=== PATIENT | male | born 1980 | race Caucasian/White ===

== ENCOUNTER 2016-12-20 08:44 | Emergency (ER) | payer OTHER ==
[2016-12-20] MEDS ORDERED: KETOROLAC TROMETHAMINE 60 MG/2 ML SDV IM ONE (09:14)
--- NOTE | 2016-12-20 09:25 | ER Document Report ---
ED Neck/Back Problem - General Chief Complaint: Back Pain Stated Complaint: BACK,NECK PAIN Mode of Arrival: Ambulatory Information source: Patient TRAVEL OUTSIDE OF THE [place] IN LAST 30 DAYS: No - HPI Patient complains to provider of: Pain, Neck, Upper back Onset: Other - 2 weeks Where: Home Onset: Gradual Timing: Constant Quality of pain: Dull Severity: Moderate Context: denies: Became dizzy, Fainted, Fall/near-fall, Lifting, Seizure Recent injury: No Associated symptoms: Like prior neck/back pain, Numbness/tingling - Chronic. denies: Chest pain, Abdominal pain, Chills, Constipation, Fever, Incontinence, Motor loss, Radiation to arm, Radiation to chest, Radiation to leg, Sensory loss , Sweaty, Unable to urinate, Lower back pain, Upper back pain Exacerbated by: Movement of neck Relieved by: Nothing Similar symptoms previously: Yes Recently seen / treated by doctor: Yes Notes: Patient arrives with complaints of left neck and upper back pain for the last 2 weeks. He states that he has had this in the past. 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 He thinks that this flared up his problem. Pain is in the left neck and upper back. It is worse with movement. He does complain of some tingling to the left hand, but states that that has been chronic for the last 10 years. He denies any fever, blood thinners, bowel or bladder dysfunction, weakness, chest pain, shortness of breath, or any further concerns at this time. - Related Data Allergies/Adverse Reactions: Penicillins Allergy (Verified 12/20/16 08:59) Home Medications: Current Home Medications Ibuprofen [Motrin 800 mg Tablet] 800 mg PO Q8H PRN 12/20/16 [History] Past Medical History - Social History Smoking Status: Current Every Day Smoker Chew tobacco use (# tins/day): No Frequency of alcohol use: None Drug Abuse: None Family History: Reviewed & Not Pertinent Renal/ Medical History: Denies: Hx Peritoneal Dialysis - Immunizations Hx Diphtheria, Pertussis, Tetanus Vaccination: Yes Review of Systems - Review of Systems -: Yes All other systems reviewed and negative Physical Exam - Vital signs Vitals: Temp Pulse Resp BP Pulse Ox 98.6 F 85 18 153/85 H 96 12/20/16 08:56 12/20/16 08:56 12/20/16 08:56 12/20/16 08:56 12/20/16 08:56 Interpretation: Normal - Notes Notes: GENERAL: alert, cooperative, nontoxic, no distress. HEAD: normocephalic, atraumatic EYES: conjunctiva pink without discharge, no external redness or swelling. EARS: no external swelling, no external redness NOSE: atraumatic, no external swelling MOUTH/THROAT: mucous membranes moist and pink, posterior pharynx without erythema, swelling, exudate. No trismus or drooling. NECK: soft, supple, full range of motion, no meningismus. CHEST: no distress, lungs clear and equal throughout. No wheezing, rales, rhonchi. CARDIAC: regular rate and rhythm, no murmur, normal capillary refill, normal pulses. No peripheral edema noted. ABDOMEN: soft, nontender, no pusatile mass. BACK: Patient is noted to have tenderness and spasm to the left upper back along the scapula. He has full range of motion of the back as well as the neck but states that the pain is much worse when he turns his head. There is no midline bone tenderness to exam. EXTREMITIES: full range of motion of all extremities. No redness, no swelling. NEURO: alert and oriented -3, no focal deficits, full range of motion of all extremities. 5 out of 5 flexion and extension of the UPPER extremities bilaterally. Bicep and tricep deep tendon reflexes are +2 bilaterally. Normal sensation with no saddle anesthesia. PYSCH: appropriate mood, affect. Patient is cooperative. SKIN: pink, warm, dry, no rash. Course - Re-evaluation Re-evalutation: 12/20/16 09:24 Patient is nontoxic appearing with stable vitals. The patient has left neck and upper back pain for the last several weeks. No trauma. No sign or risk of cauda equina, epidural abscess or bleed. He has an exam consistent with muscle spasm in the left upper back and neck. Patient will be given a shot of Toradol here in the emergency department. Discharged home on Voltaren and Valium. Follow-up if not better in 1 week, sooner for increased pain, fever, numbness, tingling, weakness, any further concerns. The patient is noted to have elevated blood pressure during today's emergency department visit. The patient was informed of this finding. The patient was instructed that this may be related to pre-hypertension and requires further evaluation with a primary care provider. The patient has no hypertensive symptoms at this time. - Vital Signs Vital signs: Temp Pulse Resp BP Pulse Ox 98.6 F 85 18 153/85 H 96 12/20/16 08:56 12/20/16 08:56 12/20/16 08:56 12/20/16 08:56 12/20/16 08:56 Discharge - Discharge Clinical Impression: Spasm of thoracic back muscle Condition: Stable Disposition: HOME, SELF-CARE Instructions: Muscle Strain ([facility]), Oral Narcotic Medication ([facility]) Additional Instructions: Take medications as prescribed. Stretch. Follow-up if not better in 1 week, sooner for increased pain, fever, numbness, tingling, weakness, any further concerns. Your blood pressure was elevated during today's visit. Have this rechecked with your doctor. The medication you were prescribed today may cause drowsiness. Do not drive or operate heavy machinery while taking this medication. Prescriptions: Diazepam [Valium 5 mg Tablet] 5 mg PO BIDP PRN #10 tablet PRN Reason: Diclofenac Sodium [Voltaren] 75 mg PO BID #20 tablet.dr Forms: Elevated Blood Pressure
[2016-12-20 09:40] VITALS: BP 134/87
== END 2016-12-20 09:36 | disposition home or self-care (01) ==
LOC: ER 08:44
DX: M62.830 Muscle spasm of back (principal); M54.9 Dorsalgia, unspecified; M54.2 Cervicalgia; M54.6 Pain in thoracic spine; F17.200 Nicotine dependence, unspecified, uncomplicated
CPT/HCPCS: 99283; 96372; J1885